=== PATIENT | male | born 1955 | race Caucasian/White ===

== ENCOUNTER → 2024-10-15 08:15 | Outpatient (BNVA) | payer OTHER, SELFPAY | PROVIDERS: Visit Provider Physician Assistant | DX: M79.642 Pain in left hand (principal); M65.322 Trigger finger, left index finger | CPT/HCPCS: 73130; 99204 ==

== ENCOUNTER 2024-10-21 07:05 | Day surgery (SDC) | payer OTHER, SELFPAY ==
[2024-10-21] VITALS (11 sets, daily range): BP systolic 152–182; BP diastolic 75–93; PULSE 63–100; RESP 16–18; TEMP 36.1–36.4; O2SAT 96–100; BMI 29.2
[2024-10-21] MEDS: sodium chloride 0.9% 1,000 ML 30 ML IV (07:47)
--- NOTE | 2024-10-21 07:47 | W.PM.OPSUD ---
Surgery/Procedure H&P Update DATE OF PROCEDURE: October 21, 2024 DATE H&P PERFORMED: 10/15/24 H&P UPDATE INFORMATION: I have reviewed H&P completed within last 30 days, I have examined patient prior to procedure and No changes to prior documentation CHANGES TO PREVIOUS DOCUMENTATION: Patient at this point time had recent heart stents placed as a result will not receive anesthetic and will do this under local only. Plan to proceed to the OR today for left index finger trigger release. Patient understands agrees with current plan. Questions answered. PREOP DIAGNOSIS: Left index finger trigger PRIMARY INDICATION FOR PROCEDURE: Left index finger trigger PLANNED PROCEDURE: Operation Date: 10/21/24 08:40 Proposed Procedures p L index finger trigger release(Left) - Paul Kumar DO
[2024-10-21 07:48] LABS: Glucose Point of Care 159 mg/dL (70-110)
[2024-10-21] MEDS: ketorolac 30 mg/mL INJ IVP (07:48)
[2024-10-21] MEDS: ceFAZolin 2,000 MG in sodium chloride 0.9% (plus) 50 ML 100 MG IV (08:18)
[2024-10-21] MEDS: lidocaine 1% 10 ML INJ XX (08:45)
[2024-10-21] MEDS: ROPivacaine 0.5% SDV 30 mL 150 MG INJECTION (08:45)
[2024-10-21] MEDS: clopidogrel 300 mg Tablet 600 MG PO (09:07)
--- NOTE | 2024-10-21 09:22 | P.BOP_ITS ---
Date of Procedure: 10/21/2024 Surgeon: Paul Kumar DO Cross Tie Tram Loader(s): None Procedure(s) performed: Left index finger trigger release Findings of the procedure(s): Patient found to have left index finger trigger underwent procedure as planned without issues or complications patient underwent this wide-awake under local anesthesia and was able to make a full fist and extend his digit with no mechanical triggering, patient was satisfied with his results intraoperatively. Taken back to recovery stable condition Estimated blood loss: 2 mL Specimen(s) removed: None Post-operative diagnosis: Left index finger trigger
--- NOTE | 2024-10-21 09:23 | P.OP_ITS ---
Operative Report Date of procedure: October 21, 2024 Surgeon: Paul Kumar DO Procedure: Preoperative diagnosis: Left index finger trigger Post-op diagnosis: Same Procedure done: Left Index finger?trigger?release Surgeon: Paul Kumar DO Estimated blood loss: 2cc Tourniquet time 10mins Complications: None Condition: stable Disposition: same day Brief History: Patient's been seen and worked up in the outpatient setting and findings consistent with preoperative diagnosis of Left Index finger?trigger.? He is failed conservative treatment.? Continues to have mechanical locking and catching.? Severe pain as well.? We talked about treatment options nonoperative versus operative intervention.? ?Patient understands the risk benefits complication alternatives of surgical nonsurgical treatment options.? Understanding his risks with surgery he elects proceed with surgical intervention.? Consent obtained.? Here today to proceed with surgical intervention.? All questions answered. Procedure: Patient was seen and evaluated in the preoperative holding area.? Consent was reviewed and signed with patient.? Seen evaluated by Anesthesia DepartmentGiven patient's recent cardiac stent history they recommend against anesthetic from a general anesthesia standpoint at this point time talked about it with patient and he is agreeable and would like to proceed with this just as a local only anesthesia.? Once cleared for surgery was brought back to the operative suite.? Placed in supine position on the OR table all bony prominences well-padded patient properly secured to the bed.? Patient's Left arm was then placed to the armboard.? A nonsterile tourniquet applied to the Left upper arm.? Patient's Left upper extremity was then prepped and draped in standard orthopedic fashion.? Final timeout performed.? Patient received appropriate preoperative antibiotics. Esmarch tourniquet was used exsanguinate the Left upper extremity tourniquet insufflated to 250 mmHg. Under sterile aseptic technique local digital block was performed to the Left Index finger.? Once appropriately anesthetized a standard longitudinal incision was made centering over the A1 anthony following patient's flexor crease.? Sharp scalpel incision was made only through skin and then switched to Littler dissection scissors and spread longitudinally directly over the flexor tendon sheath.? I then mobilized both radially and ulnarly and Kasdan retractors were used and placed by my reference library assistant to protect neurovascular bundle.? Next I visualized the A1 anthony and this was incised with a scalpel.? I then switched to dissection scissors and released the A1 anthony both proximally as well as distally to its entirety.? Significant tendon sheath fluid was noted consistent with inflammation.? Mild fraying of the flexor tendons noted but no tear.? At this point I utilized a rag nail and pulled the tendons FDS and FDP out of the incision and no?triggering was noted.? Pt was wide awake under local only and was able to actively flex and extend with no?triggering.? This point thorough irrigation was performed.? Tourniquet deflated hemostasis satisfactory with bipolar.? I then subsequently closed the incision with interrupted nylon suture.? Xeroform 4 x 4's, Kerlix and an Vasiliy wrap was applied for a bulky soft dressing.? Patient was then subsequently take to recovery in stable condition, pt tolerated procedure without issues. Disposition: Patient taken back in stable condition recovering well.? Patient will receive appropriate discharge instruction as well as pain medication postoperatively.? Patient to follow-up with me in the office in 2 weeks for repeat evaluation and incision check.? Patient understands that any questions or concerns and contact the office.? All questions answered.
== END 2024-10-21 09:26 | disposition home or self-care (01) ==
PROVIDERS: Visit Provider Student in an Organized Health Care Education/Training Program
PROC: (CPT 26055; principal; 2024-10-21 08:40)
DX: M65.322 Trigger finger, left index finger (principal); Z79.899 Other long term (current) drug therapy; Z79.02 Long term (current) use of antithrombotics/antiplatelets; Z79.84 Long term (current) use of oral hypoglycemic drugs; Z87.891 Personal history of nicotine dependence
CPT/HCPCS: 26055; 36416; 82962; J0690; J1100; J1885; J2405; J2704; J2795; J3490; J7030

== ENCOUNTER → 2024-11-03 14:06 | Outpatient (BNVA) | payer OTHER, SELFPAY | PROVIDERS: Visit Provider Physician Assistant | DX: Z98.890 Other specified postprocedural states (principal) | CPT/HCPCS: 99024 ==

== ENCOUNTER → 2024-11-05 09:47 | Outpatient (BNVA) | payer SELFPAY | PROVIDERS: Visit Provider Family Medicine | DX: R39.9 Unspecified symptoms and signs involving the genitourinary system (principal); R50.9 Fever, unspecified | CPT/HCPCS: 81000; 87400 ==

== ENCOUNTER → 2024-11-11 14:50 | Outpatient (BNVA) | payer OTHER, SELFPAY | PROVIDERS: Visit Provider Internal Medicine | DX: I25.10 Atherosclerotic heart disease of native coronary artery without angina pectoris (principal); I10 Essential (primary) hypertension; E78.5 Hyperlipidemia, unspecified; E11.9 Type 2 diabetes mellitus without complications; Z79.84 Long term (current) use of oral hypoglycemic drugs | CPT/HCPCS: 99204 ==

== ENCOUNTER → 2025-04-06 07:25 | Outpatient (BNVA) | payer OTHER, SELFPAY | PROVIDERS: Visit Provider Podiatrist Foot & Ankle Surgery | DX: B35.1 Tinea unguium (principal); E11.8 Type 2 diabetes mellitus with unspecified complications; E11.40 Type 2 diabetes mellitus with diabetic neuropathy, unspecified; B35.3 Tinea pedis; L84 Corns and callosities; Z79.84 Long term (current) use of oral hypoglycemic drugs | CPT/HCPCS: 99204 ==

== ENCOUNTER → 2025-05-17 11:01 | Outpatient (BNVA) | payer OTHER, SELFPAY | PROVIDERS: Visit Provider Internal Medicine | DX: I25.810 Atherosclerosis of coronary artery bypass graft(s) without angina pectoris (principal); I10 Essential (primary) hypertension; E11.9 Type 2 diabetes mellitus without complications; Z79.84 Long term (current) use of oral hypoglycemic drugs; E78.5 Hyperlipidemia, unspecified; Z79.02 Long term (current) use of antithrombotics/antiplatelets; Z79.82 Long term (current) use of aspirin; Z87.891 Personal history of nicotine dependence | CPT/HCPCS: 99214 ==